=== PATIENT | female | born 2000 | race Caucasian/White ===

== ENCOUNTER 2019-03-11 12:01 | Emergency (ER) | payer BC ==
[~2019-03-11] VITALS: Ht 165.1 cm; Wt 63.6 kg
[2019-03-11 12:06] VITALS: TEMP 99
[2019-03-11] MEDS ORDERED: FLEXERIL 1010 MG/TAB PO (14:11)
[2019-03-11 14:27] VITALS: BP 111/69; PULSE 57
== END 2019-03-11 14:28 | disposition home or self-care (01) ==
LOC: COL.ER 12:01
DX: S06.0X0A Concussion without loss of consciousness, initial encounter (principal); S16.1XXA Strain of muscle, fascia and tendon at neck level, initial encounter; V43.52XA Car driver injured in collision with other type car in traffic accident, initial encounter
CPT/HCPCS: J1885